=== PATIENT | male | born 1970 | race Caucasian/White ===

== ENCOUNTER 2018-03-22 08:47 | Outpatient (CLI) | payer OTHER ==
--- NOTE | 2018-03-22 09:47 | RAD ---
RIGHT WRIST 3 VIEWS: Date: 03/22/18 HISTORY: Right wrist pain. FINDINGS/IMPRESSION: No fracture, dislocation, or bony destruction is identified. If there is concern for ligamentous or cartilaginous injury, further evaluation with MRI should be pe rformed. POS: [facility]
== END 2018-03-22 08:48 | disposition home or self-care (01) ==
LOC: BICRAD 08:47
PROVIDERS: ATTEND Specialist
DX: M25.531 Pain in right wrist (principal)

== ENCOUNTER 2018-05-01 10:35 | Outpatient (CLI) | payer OTHER ==
--- NOTE | 2018-05-01 12:28 | MRI ---
MRI OF THE RIGHT WRIST WIHTOUT IV CONTRAST: INDICATION: History of right wrist pain. COMPARISON: Right wrist radiograph: Date: 03/22/2018. FINDINGS: There is a small synovial cyst seen involving the radiocarpal margin on image 11 of series 10 measuri ng 9.3 mm. This extends off the capsule of the radial scaphoid articulation. The scapholunate and lunate triquetral ligaments appear intact. The extrinsic ligaments appear intac t. The TFC is intact. The extensor tendons appear intact. The carpal tunnel and its contents appea r intact. The ulnar neurovasculature appears within normal limits. No acute fracture is demonstrate d. IMPRESSION: 1. Small periarticular synovial cyst extending off the radial scaphoid trunk capsule. 2. The triangular fibrocartilage is intact. 3. The extrinsic and intrinsic ligaments of the wrist appear intact. POS: [facility]
== END 2018-05-01 10:36 | disposition home or self-care (01) ==
LOC: SCSMRI 10:35
PROVIDERS: ATTEND Specialist
DX: M25.531 Pain in right wrist (principal); M71.331 Other bursal cyst, right wrist